=== PATIENT | female | born 1980 | race Two or more races ===

== ENCOUNTER 2017-01-11 10:13 | Emergency (ER) | payer SELFPAY ==
[~2017-01-11] VITALS: Ht 157.5 cm; Wt 76.7 kg
[2017-01-11] MEDS ORDERED: methylPREDNISolone SOD SUCC 125 MG/2 ML VL IM ONE (12:45)
[2017-01-11] MEDS ORDERED: diphenhdrAMINE HCL 50 MG/1 ML VL IM ONE (12:45)
[2017-01-11 13:12] VITALS: BP 173/113
== END 2017-01-11 13:21 | disposition home or self-care (01) ==
LOC: ER 10:13
DX: R21 Rash and other nonspecific skin eruption (principal)

== ENCOUNTER 2017-01-14 15:34 | Emergency (ER) | payer SELFPAY ==
[~2017-01-14] VITALS: Ht 154.9 cm; Wt 77.1 kg
[2017-01-14 15:48] VITALS: BP 114/84
== END 2017-01-14 21:36 | disposition home or self-care (01) ==
LOC: ER 15:34
DX: O9A.211 Injury, poisoning and certain other consequences of external causes complicating pregnancy, first trimester (principal); S93.402A Sprain of unspecified ligament of left ankle, initial encounter; M54.5 Low back pain; M79.1 Myalgia; V73.5XXA Driver of bus injured in collision with car, pick-up truck or van in traffic accident, initial encounter; Y93.89 Activity, other specified; Y92.89 Other specified places as the place of occurrence of the external cause; Y99.8 Other external cause status; Z3A.01 Less than 8 weeks gestation of pregnancy
CPT/HCPCS: 29515; 73600